=== PATIENT | female | born 1980 | race Caucasian/White ===

== ENCOUNTER 2016-04-08 07:53 | Observation (INO) | payer BC ==
[2016-03-22 11:59] VITALS: BMI 38.0
--- NOTE | 2016-03-22 12:28 | PAT Medication Instructions ---
Service Date Mar 22, 2016. Current Home Medication List Alprazolam (Xanax), 0.5 MG PO BID PRN Ibuprofen (Advil), 400 MG PO PRN Levothyroxine Sodium (Levothyroxine Sodium), 1 TAB PO QAM Multivitamin (Multivitamin), 1 TAB PO NOON Ranitidine Hcl (Zantac), 150 MG PO PRN Venlafaxine Hcl (Effexor), 75 MG PO NOON Medication Instructions For Your Scheduled Surgery - Hold the following medications the morning of surgery: Ibuprofen (Advil), 400 MG PO PRN Multivitamin (Multivitamin), 1 TAB PO NOON - Take the following medications the morning of surgery with a sip of water OTHERWISE NOTHING TO EAT OR DRINK AFTER MIDNIGHT: Alprazolam (Xanax), 0.5 MG PO BID PRN Levothyroxine Sodium (Levothyroxine Sodium), 1 TAB PO QAM Ranitidine Hcl (Zantac), 150 MG PO PRN If you have any questions please call us at [phone] or [phone] or [phone]
[2016-03-22 13:22] LABS: BASO % 0.2 %; BASO ABS # 0.02 K/uL (0-0.2); COMPLETE YES; EOS % 0.8 %; HEMATOCRIT 40.9 % (37-47); IG% 0.1 %; LYMPH % 25.5 %; LYMPH ABS # 2.11 K/uL (1.2-3.4); MEAN CELL VOLUME 83.3 fL (80-100); MEAN CORPUSCULAR HEMOGLOBIN 28.7 pg (25-34); MEAN CORPUSCULAR HGB CONC 34.5 g/dl (32-36); MEAN PLATELET VOLUME 10.8 fL (7.4-10.4); MONO % 5.9 %; NEUT % 67.5 %; PLATELET COUNT 267 K/uL (130-400); RED BLOOD COUNT 4.91 M/uL (4.2-5.4); WHITE BLOOD COUNT 8.28 K/uL (4.8-10.8)
[2016-03-22 13:42] LABS: BUN/CREATININE RATIO 15.9 (10-20); CALCIUM 9.4 mg/dl (8.5-10.1); CREATININE 0.75 mg/dl (0.60-1.20)
[2016-04-08] VITALS (9 sets, daily range): BP systolic 88–138; BP diastolic 54–83; PULSE 58–77; TEMP 36.5–37; O2SAT 95–99; Ht 167.6 cm; Wt 107.5 kg
[~2016-04-08] VITALS: Ht 167.6 cm; Wt 107.5 kg
[~2016-04-08 07:53] MED LIST: ACETAMINOPHEN 1000 MG/100 ML IV IV ONE; ALPR-411 PO; CEFAZOLIN 3000 MG/65 ML D5W 50 ML IV SCH; EFF75 PO; IBUP-1050 PO; LACTATED RINGER'S 1000ML 1,000 ML IV SCH; LEVO150T9 PO; MULT-506 PO; RANI150T3 PO
[2016-04-08] MEDS ORDERED: MIDAZOLAM HCL 1 MG/ML 2ML VIAL ONE (08:36)
[2016-04-08] MEDS ORDERED: NEOSTIGMINE METHYLSULFATE 5 MG/5 ML SYR ONE (08:36)
[2016-04-08] MEDS ORDERED: LIDOCAINE HCL 2% 2 ML VIAL (20MG/ML) ONE (08:36)
[2016-04-08] MEDS ORDERED: PROPOFOL IV EMULSION 10 MG/ML 20 ML VIAL IV ONE ×2 (08:36→08:37)
[2016-04-08] MEDS ORDERED: DEXAMETHASONE SOD INJ 4 MG/ML VIAL ONE (08:36)
[2016-04-08] MEDS ORDERED: SUCCINYLCHOLINE CHLORIDE 20 MG/ML 10 ML VIAL IV ONE (08:36)
[2016-04-08] MEDS ORDERED: ONDANSETRON INJ 2 MG/ML 2 ML VIAL ONE ×2 (08:36→10:53)
[2016-04-08] MEDS ORDERED: FENTANYL CITRATE INJ 50 MCG/1 ML 2 ML VIAL ONE ×3 (08:36→10:32)
[2016-04-08] MEDS ORDERED: EpHEDrine SULFATE INJ 50 MG/ML AMP ONE (08:36)
[2016-04-08] MEDS ORDERED: ROCURONIUM BROMIDE 10 MG/ML 5 ML VIAL ONE (08:36)
[2016-04-08] MEDS ORDERED: PHENYLEPHRINE HCL INJ 10 MG/ML VIAL ONE (08:36)
[2016-04-08] MEDS ORDERED: GLYCOPYRROLATE INJ 0.2 MG/ML VIAL ONE (08:36)
[2016-04-08] MEDS ORDERED: HYDROmorphone INJ 1 MG/ML SYR IV PRN (09:30)
[2016-04-08] MEDS ORDERED: ATROPINE SULFATE 0.1 MG/ML 5ML SYR IV PRN (09:30)
[2016-04-08] MEDS ORDERED: EpHEDrine SULFATE INJ 50 MG/ML AMP IV PRN (09:30)
[2016-04-08] MEDS ORDERED: PROMETHAZINE HCL INJ 6.25 MG in SODIUM CHLORIDE 0.9% 50ML 50 ML IV PRN (09:30)
[2016-04-08] MEDS ORDERED: ONDANSETRON INJ 2 MG/ML 2 ML VIAL IV PRN ×2 (09:30→12:00)
--- NOTE | 2016-04-08 09:44 | History & Physical Bridge Note ---
H&P Re-Evaluation Bridge Note: I have examined the patient, reviewed the History & Physical and in the interval since the performance of the History & Physical I have noted the following changes of clinical significance: No changes noted
[2016-04-08] MEDS ORDERED: METHYLENE BLUE 0.5% 10 ML VIAL ONE (09:54)
[2016-04-08] MEDS ORDERED: BUPIVACAINE 0.5 % 5 MG/1 ML MPF 30ML VIAL ONE (09:54)
[2016-04-08] MEDS ORDERED: HYDROmorphone INJ 2 MG/ML SYR/VIAL ONE ×2 (10:31→10:37)
[2016-04-08] MEDS ORDERED: LABETALOL HCL IV 5 MG/ML 20ML ONE (10:53)
[2016-04-08] MEDS ORDERED: TISSEEL FIBRIN SEALANT 4ML TOP ONE (11:44)
[2016-04-08] MEDS ORDERED: MAGNESIUM HYDROXIDE SUSP 30 ML UDC PO PRN (12:00)
[2016-04-08] MEDS ORDERED: BISACODYL 10 MG SUPP PR PRN (12:00)
[2016-04-08] MEDS ORDERED: KETOROLAC TROMETHAMINE 30 MG/ML VIAL IV. PRN (12:00)
[2016-04-08] MEDS ORDERED: OXYCODONE/ACETAMINOPHEN 5-325 TAB PO PRN ×2 (12:00)
[2016-04-08] MEDS ORDERED: SIMETHICONE 80 MG CHEW PO PRN (12:00)
[2016-04-08] MEDS ORDERED: MEPERIDINE HCL 50 MG/ML CARP IV PRN (12:00)
[2016-04-08] MEDS ORDERED: IBUPROFEN 600 MG TAB PO PRN (12:00)
[2016-04-08] MEDS ORDERED: MEPERIDINE HCL 75 MG/ML CARP IV PRN (12:00)
[2016-04-08] MEDS ORDERED: PROMETHAZINE HCL INJ 12.5 MG in SODIUM CHLORIDE 0.9% 50ML 50 ML IV PRN (12:00)
[2016-04-08] MEDS ORDERED: ACETAMINOPHEN 325 MG TAB PO PRN (12:00)
[2016-04-08] MEDS ORDERED: PROMETHAZINE HCL INJ 25 MG in SODIUM CHLORIDE 0.9% 50ML 50 ML IV PRN (12:00)
[2016-04-08] MEDS ORDERED: ZOLPIDEM TARTRATE 5 MG TAB PO PRN (12:00)
--- NOTE | 2016-04-08 12:02 | [facility] Post Operative Brief Note ---
Immediate Operative Summary Operative Date Apr 08, 2016. Pre-Operative Diagnosis Dysfunctional Uterine Bleeding, endometriosis Post-Operative Diagnosis Same Procedure(s) Performed Robotic Assisted Total Laparoscopic Hysterectomy, Bilateral salpingectomy, Cystoscopy Surgeon Dr Quick Production Maintenance Technician Surgeon(s) . Estimated Blood Loss 50ML Findings Mild endo Specimens A. Uterus, cervix, bilateral fallopian tubes Drains Piper Anesthesia General Complication(s) None Disposition Recovery Room / PACU
--- NOTE | 2016-04-08 12:03 | Discharge Instructions ---
Discharge Instructions Admission Reason for Admission: Dysfunctional Uterine Bleeding, Pelvic Pain Discharge Discharge Diagnosis / Problem: menorrhagia Discharge Goals Goal(s): Routine recovery after surgery Activity Recommendations Activity Limitations: per Instructions/Follow-up section . Instructions / Follow-Up Instructions / Follow-Up POST OPERATIVE: BOWEL FUNCTION/MEDICATIONS: 1. Constipation pain and discomfort are the most common complaints 5-7 days after surgery. Points 2-6 address the things that can help. 2. Chewing gum can help stimulate the gut and help improve digestion and motility. 3. Milk of Magnesia 1-2 times per day until return of bowel function. 4. Colace is a stool softener that helps. Taking this 2-3 times per day until bowel function returns to normal is highly recommended. 5. Dulcolax is a laxative that may be used if several days have passed without a bowel movement. Alternatively Miralax may be used daily instead. 6. Drink plenty of fluids as this will also reduce constipation. 7. Narcotic pain medications will be prescribed by your physician. They are safe to use and we encourage you to use them. If you are not allergic, ibuprofen will also be prescribed. Many patients will be able to transition off of the narcotic medications to ibuprofen by postoperative day 3. ACTIVITY RECOMMENDATIONS: 1. Get plenty of rest and listen to your body. If you are tired, take a nap. 2. You may shower, but do not take a tub bath until you see your doctor at the 2 week post operative visit. 3. Absolutely NO intercourse and nothing in the vagina until you are examined by your doctor at the 6 week visit. At that visit it will be determined when such activities can be resumed. This can range from 6-12 weeks after your surgery depending on healing time. 4. The main physical activity in the first week should be walking. By the second week you can slowly increase activity. There are no limits on walking up and down stairs. 5. Do not lift more than 5-10 lbs for 4 weeks. Remember the "one-handed rule", i.e. if you can lift something with only one hand it's likely okay. 6. Minimize hydrotechnical specialist like vacuuming and exercising for 4 weeks. "Overdoing it" can lead to incisions not healing, pain and vaginal bleeding , so again, listen to your body. 7. Driving can be resumed when you feel able. Do not drive within 24 hours of taking a narcotic medication. EXPECTATIONS: 1. Vaginal spotting, bleeding and discharge are common after surgery. There may even be an odor to the discharge which is often related to sutures used in the vagina. If you experience heavy vaginal bleeding, call the office number day or night [phone]. 2. Bladder discomfort is common after surgery from the catheter. This usually resolves in 1-2 weeks. 3. By the end of the 3rd or 4th week you should be feeling much better. It may take up to 6 weeks for your energy levels to return to normal. 4. Narcotic medications have side effects such as: dizziness, headache, nausea and/or vomiting. If you suspect your pain medication is causing problems, call our office and we may be able to prescribe an alternate medication. 5. The skin incisions are often covered with a liquid bandage. This will gradually peel off over time. CALL THE OFFICE IF YOU HAVE ANY OF THE FOLLOWIN. Temperature of 101 degrees or higher. 2. Severe abdominal or pelvic pain not relieved by pain medication. 3. Persistent nausea or vomiting. 4. Increased pain with urination or difficulty urinating. 5. Bright red bleeding that soaks more than 1 pad per hour. CONTACT PHONE NUMBERS: Main Office: [phone] Surgical Nurse: [phone] extension [phone] Avoid all tobacco products. If you need help to stop smoking, call [place] FREE QUITLINE at . This is a free call. Current Hospital Diet Patient's current hospital diet: Discharge Diet Recommended Diet: Regular Diet Procedures Procedures Performed: Robotic Assisted Total Laparoscopic Hysterectomy, Bilateral salpingectomy, Cystoscopy Pending Studies Studies pending at discharge: no Medical Emergencies . Who to Call and When: Medical Emergencies: If at any time you feel your situation is an emergency, please call 911 immediately. . Non-Emergent Contact Non-Emergency issues call your: Primary Care Provider . . "Provider Documentation" section prepared by Ramón Quick. VTE Core Measure Inpt VTE Proph given/why not?: Angela Mcleod, SCD's
[2016-04-08] MEDS ORDERED: OXYC-57 PO (12:04)
[2016-04-08] MEDS ORDERED: MTR600X PO (12:04)
--- NOTE | 2016-04-08 12:38 | OPERATIVE REPORT ---
DATE OF OPERATION: 04/08/2016 PREOPERATIVE DIAGNOSIS: Dysfunctional uterine bleeding, endometriosis. POSTOPERATIVE DIAGNOSIS: Same. PROCEDURE: Robotically assisted total laparoscopic hysterectomy, bilateral salpingectomy, cystoscopy. SURGEON: Dr. Quick. ESTIMATED BLOOD LOSS: 50 mL. FINDINGS: Mild endometriosis. SPECIMENS: Uterus, cervix, bilateral fallopian tubes. DRAINS: Piper catheter. ANESTHETIC: General. COMPLICATIONS: None. DISPOSITION: Recovery room. DESCRIPTION OF PROCEDURE: Jurgen was taken back to the operating room, prepped and draped in dorsal lithotomy position. IV antibiotics given. Care was taken in positioning to avoid undue pressure on limbs. Piper catheter placed in the bladder to drain and also VCare sewn into place into the uterus. Gloves changed and a supraumbilical incision was made with scalpel using direct entry technique. With Brionna technique, we did a cut down first by incising the skin and subcutaneous fat, cutting the fascia and splitting the rectus muscles and entering the peritoneal cavity. Blunt-tipped Brionna trocar then placed. Balloon inflated. CO2 gas then insufflated. FINDINGS: Upper abdomen normal. There was a minimal anterior abdominal adhesion to the omentum and then the uterus was visualized. Some mild endometriosis in the back wall of the uterus. Both ovaries appeared normal, as did the pelvic sidewalls and there were dense adhesions from the prior on the bladder flap, but this was expected as she has had several C-sections before. Two robotic ports, 1 in the left and 1 in the right placed, under direct visualization. Left upper quadrant accessory port 11 mm bladeless. Arm #1 in the robot when docked was monopolar simon, arm #2 bipolar [place]. Note, we had deep Trendelenburg position for this and this was obtained prior to robot docking. Using the VCare to manipulate, I identified the ureter on both sides, it followed a normal course. Removed the fallopian tubes, first on the left side and then the right side. These were removed through the accessory port. The ovaries appeared normal, did not feel it mchugh to remove these. The blood supply distal to the ovary was coagulated with the bipolar [place] then cut with monopolar simon. We were well away from the ureter at this point. Same process with the round ligament. Uterine vessels then skeletonized and then I was able to sharply dissect away the bladder flap. This was largely without electrosurgery and only judicious use. I was able to fully dissect away the bladder flap on the left side and then coagulate the uterine vessels. These were well away from the left ureter and then cut them with the monopolar simon to the vessels. The exact same process was continued on the right. Great care was taken on the bladder flap to avoid damage to the bladder and was fully dissected sharply away from the distal cervix. Once those vessels were controlled, we then were able to use monopolar simon to make an anterior colpotomy, and then continuing the colpotomy to remove the cervix from the vagina completely. The uterus was then pulled into the vagina to maintain pneumoperitoneum. After generous irrigation and suction, we did an instrument exchange including arm #1 Michael needle company truck driver, arm #2 Cobra, 12 inch 2-0, 90-day V-Loc suture then passed through the accessory port. Cuff closed from left to right, back right to left, taking full thickness at least 1 cm bites of vaginal mucosa. Suture was cut so there was no tail and needle was removed through the accessory port. IV methylene blue had been given at the start of cuff closure. Piper catheter had been removed. Cystoscope performed. There were no lesions in the bladder, no sutures and good strong jets of dye from the left and right ureter openings. Cystoscope removed and a new Piper catheter placed. The uterus had been removed from the vagina. There was no vaginal bleeding noted. After generous irrigation and suction, we did apply 4 mL of Miladis to the cuff and the uterine vessel regions, as well as the ovarian pedicles. After this, robot was undocked. Instruments had all been removed. Gas allowed to escape. Ports removed. All ports had been injected with 0.5% Marcaine. Fascia closed carefully with 0 Vicryl sutures. Subcutaneous fat then closed with 0 Vicryl in the umbilical and left upper quadrant incision, 4-0 subcuticular Monocryl closures with Dermabond. Sponge and instrument counts correct. I attest to the content of the Intraoperative Record and any orders documented therein. Any exceptio ns are noted below.
[2016-04-08] MEDS: FENTANYL CITRATE INJ 50 MCG/1 ML 2 ML VIAL IV PRN ×2 (12:50→12:55)
--- NOTE | 2016-04-08 13:17 | Anesthesiology Progress Note ---
Anesthesia Post Op Note Date & Time Apr 08, 2016 at 13:17 Vital Signs Pain Intensity: 0 Vital Signs Past 12 Hours Date Time Temp Pulse Resp B/P Pulse Ox O2 Delivery O2 Flow Rate FiO2 04/08/16 13:00 55 20 117/65 100 Nasal Cannula 3 04/08/16 12:50 36.8 59 20 124/60 100 Nasal Cannula 3 04/08/16 12:40 58 20 107/46 100 Nasal Cannula 3 04/08/16 12:30 57 20 100/43 100 Mask 10 04/08/16 12:20 66 20 103/49 100 Mask 10 04/08/16 12:14 36.7 68 20 107/47 97 Mask 10 04/08/16 08:26 36.9 73 20 138/83 99 Room Air Notes Mental Status: alert / awake / arousable, participated in evaluation Pt Amnestic to Procedure: Yes Nausea / Vomiting: adequately controlled Pain: adequately controlled Airway Patency, RR, SpO2: stable & adequate BP & HR: stable & adequate Hydration State: stable & adequate Anesthetic Complications: no major complications apparent
[2016-04-08] MEDS ORDERED: MEPERIDINE HCL 75 MG/ML CARP ONE (13:24)
[2016-04-08] MEDS ORDERED: LACTATED RINGER'S 1000ML 1,000 ML IV SCH (14:30)
[2016-04-08] MEDS ORDERED: IV FLUIDS COMPLETED PRN (16:00)
[2016-04-08] MEDS ORDERED: INFLUENZA VIRUS QUAD VACCINE 0.5 ML SYR IM. ONE (16:15)
[2016-04-08] MEDS ORDERED: INFLUENZA ADMINISTRATION CHARGE ONE (16:15)
[2016-04-08] MEDS ORDERED: DOCUSATE SODIUM 100 MG CAP PO SCH (21:00)
--- NOTE | 2016-04-09 08:13 | DISCHARGE SUMMARY ---
Jurgen had a total laparoscopic hysterectomy on April 08. Several hours later she met discharge criteria. Operative note is in the chart. Subjectively the patient was ambulating, tolerating oral diet, oral pain was controlling her pain. She was voiding well and had no extremity pain. PHYSICAL EXAM: Her vital signs were stable. She was afebrile. IMPRESSION AND PLAN: Several hours after laparoscopic hysterectomy the patient met criteria. Was discharged home on appropriate pain medication and discharge instructions.
== END 2016-04-08 19:20 | disposition home or self-care (01) ==
LOC: ENRESERVTM → ENRESERVDT → C.ACU 07:53 → C.MS4N 08:40
PROVIDERS: ADMIT Obstetrics & Gynecology; ATTEND Obstetrics & Gynecology
DX: N93.8 Other specified abnormal uterine and vaginal bleeding (principal); N80.9 Endometriosis, unspecified; E89.0 Postprocedural hypothyroidism; Z83.3 Family history of diabetes mellitus
CPT/HCPCS: 58571; S2900